=== PATIENT | female | born 1965 | race Caucasian/White ===

== ENCOUNTER 2018-06-24 15:24 | Emergency (ER) | payer OTHER ==
[~2018-06-24] VITALS: Ht 165.1 cm; Wt 64.4 kg
[2018-06-24 15:39] VITALS: BP 145/76; PULSE 75; RESP 18; Ht 165.1 cm; Wt 64.4 kg
--- NOTE | 2018-06-24 16:06 | ERD ---
ER Documentation Chief Complaint Chief Complaint right ear pain x3 days HPI 52-year-old female with past medical history of diabetes who presents with complaint of right ear pain over the past 3 days. Describes as sharp intermittent type pain actually behind the ear. Denies any discharge or bleeding from the ear. Denies any recent injury or instrumentation of the ear. Has not cleaned the ear with cotton swabs recently. Has not been in any body of water. She denies fevers, chills, recent URI type symptoms. No other sick contacts in the home. Denies any issues with hearing. Had similar episode in February 2017 prescribed antibiotics as well as Tylenol for pain control. At time of evaluation patient is nontoxic appearing with stable triage vital signs no fevers noted. ROS All systems reviewed and are negative except as per history of present illness. Medications Home Meds Active Scripts Amoxicillin* (Amoxicillin*) 500 Mg Cap, 500 MG PO TID for 7 Days, CAP Prov:RADHA QURESHI PA-C 06/24/18 Allergies Allergies: Coded Allergies: No Known Allergy (Unverified , 06/24/18) PMhx/Soc Hx Alcohol Use: No Hx Substance Use: No Hx Tobacco Use: No Smoking Status: Never smoker Physical Exam Vitals Vital Signs Date Temp Pulse Resp B/P (MAP) Pulse Ox O2 O2 Flow FiO2 Time Delivery Rate 06/24/18 97.8 75 18 145/76 99 15:39 (99) Physical Exam Const: No acute distress Head: Atraumatic Eyes: Normal Conjunctiva ENT: Normal External Ears, Nose and Mouth. Neck: Full range of motion. No meningismus. Resp: Clear to auscultation bilaterally Cardio: Regular rate and rhythm, no murmurs Abd: Soft, non tender, non distended. Normal bowel sounds Skin: No petechiae or rashes Back: No midline or flank tenderness Ext: No cyanosis, or edema Neur: Awake and alert Psych: Normal Mood and Affect Results 24 hrs Current Medications Medications Dose Sig/Iron Start Time Status Last (Trade) Ordered Route PRN Stop Time Admin Dose Reason Admin Tramadol 50 mg ONCE ONCE 06/24/18 DC HCl PO 16:30 06/24/18 (Ultram) 16:30 650 mg ONCE ONCE 06/24/18 DC 06/24/18 Acetaminophen PO 16:30 06/24/18 16:14 (Tylenol 16:31 Tab) Procedures/MDM 52-year-old female presents with right ear pain. Pain more specifically behind the right ear. Has no signs and symptoms consistent with otitis externa. Symptoms may represent early otitis media but exam otherwise unremarkable. Have elected to treat for presumed otitis media with appropriate antibiotic. No overt evidence of mastoiditis or malignant otitis externa. Low suspicion for intracranial extension. Pt non-toxic appearing, tolerating PO. Will discharge home with high dose amoxicillin. DISPOSITION PLAN: We discussed follow up with the patient's primary care doctor within 24 to 48 hours. Patient counseled regarding my diagnostic impression and care plan. Prior to discharge all questions answered. Pt agrees with treatment plan and understands strict return precautions. Precautionary instructions provided including instructions to return to the ER if not improving or for any worsening or changing symptoms or concerns. Departure Diagnosis: Primary Impression: Right ear pain Condition: Stable RADHA QURESHI PA-C Jun 24, 2018 16:06
[2018-06-24] MEDS ORDERED: ACETAMINOPHEN 325 MG TAB PO ONE (16:30)
[2018-06-24] MEDS ORDERED: traMADol 50 MG TAB PO ONE (16:30)
[2018-06-24] MEDS ORDERED: AMOX500C2 PO (16:44)
== END 2018-06-24 17:13 | disposition home or self-care (01) ==
LOC: FTE 15:24
DX: H66.91 Otitis media, unspecified, right ear (principal)
CPT/HCPCS: 99283